=== PATIENT | female | born 1950 | race Caucasian/White ===

== ENCOUNTER 2018-05-19 18:25 | Inpatient (IN) | payer MEDICARE, BC ==
[2018-05-19] VITALS (123 sets, daily range): BP systolic 124–140; BP diastolic 60–104; PULSE 63; TEMP 97.5; O2SAT 70–98
[~2018-05-19] VITALS: Ht 170.2 cm; Wt 138.4 kg
[2018-05-19 20:05] LABS: COLLECTION METHOD CATHETER
[2018-05-19] MEDS ORDERED: MUCINEX D1 TER PO (20:10)
[2018-05-19 20:11] LABS: BASO % 0.3 % (0.0-2.0); EOS # 0.2 (0.0-0.7); EOS % 2.5 % (0-4.0); LYMPH # 1.1 (1.2-3.4); LYMPH % 15.5 % (20.0-51.0); MEAN CELL VOLUME 88 fl (80.0-100.0); MEAN CORPUSCULAR HGB CONC 32 g/dl (33.0-37.0); MEAN PLATELET VOLUME 10.3 fl (7.4-10.4); MONO # 0.6 (0.1-0.6); MONO % 8.3 % (1.7-9.3); PLATELET COUNT 147 K/mm3 (130-400); RED BLOOD COUNT 2.92 M/mm3 (4.10-5.30); REDCELL DISTRIBUTION WIDTH-CV 14.3 % (11.5-14.5)
[2018-05-19] MEDS ORDERED: ADVIL200 MG PO (20:11)
[2018-05-19] MEDS ORDERED: TYLENOL 500MG500 MG PO (20:11)
[2018-05-19 20:12] LABS: HEMATOCRIT 25.7 % (37.0-47.0); HEMOGLOBIN 8.2 g/dl (12.5-16.0); MEAN CORPUSCULAR HEMOGLOBIN 28 pg (27.0-31.0)
[2018-05-19] MEDS ORDERED: NAMENDA XR 28MG PO (20:12)
[2018-05-19 20:13] LABS: PROTHROMBIN TIME 11.2 SECONDS (9.7-12.8)
[2018-05-19] MEDS ORDERED: ZOCOR 40MG40 MG PO (20:13)
[2018-05-19] MEDS ORDERED: BENICAR HCT 12.1 TAB PO (20:13)
[2018-05-19 20:14] LABS: MUCOUS Present /lpf; PH 5 (5-8); SQUAMOUS EPITHELIAL 0-2 /hpf; URINE APPEARANCE Hazy; URINE BACTERIA None Seen /hpf; URINE BILIRUBIN Negative (NEGATIVE); URINE BLOOD 1+ (NEGATIVE); URINE COLOR Straw; URINE GLUCOSE Negative (NEGATIVE); URINE KETONE Negative (NEGATIVE); URINE LEUKOCYTE ESTERASE 3+ (NEGATIVE); URINE NITRATE Negative (NEGATIVE); URINE PROTEIN(semi-quant) Negative (NEGATIVE); URINE UROBILINOGEN Negative (NEGATIVE); URINE WBC >50 /hpf
[2018-05-19] MEDS ORDERED: LYRICA 50MG CAP50 MG PO (20:14)
[2018-05-19] MEDS ORDERED: EXELON9.5 MG/24 TD (20:14)
[2018-05-19] MEDS ORDERED: VICTOZA6 MG/ML SQ (20:15)
[2018-05-19] MEDS ORDERED: LEXAPRO 5MG5 MG PO (20:15)
[2018-05-19 20:17] LABS: ALBUMIN 3.6 gm/dL (3.5-5.0); BILIRUBIN,TOTAL 0.5 mg/dL (0.0-1.0); CALCIUM 7.5 mg/dL (8.4-10.2); TOTAL PROTEIN 6.3 gm/dL (6.4-8.2)
[2018-05-19 20:25] LABS: CREATININE, serum 13.16 mg/dL (0.52-1.25); POTASSIUM 6.7 mmol/L (3.4-5.0)
[2018-05-19 20:26] LABS: CREATININE, serum 13.16 mg/dL (0.52-1.25)
[2018-05-19 21:17] LABS: RETIC # 0.07 M/mm3 (0.02-0.16); RETIC % 2.5 % (0.5-3.52)
[2018-05-19 21:20] LABS: IRON,SERUM 203 ug/dL (35-150)
[2018-05-19 21:29] LABS: TOTAL IRON BINDING CAPACITY 216 ug/dL (265-497)
[2018-05-20] VITALS (794 sets, daily range): BP systolic 117–190; BP diastolic 60–80; PULSE 60–87; TEMP 96.8–98.1; O2SAT 60–100
[2018-05-20 05:35] LABS: BASO % 0.3 % (0.0-2.0); EOS # 0.2 (0.0-0.7); GRAN # 5.7 (1.4-6.5); GRAN % 75.3 % (42.2-75.2); LYMPH # 1.1 (1.2-3.4); LYMPH % 14.5 % (20.0-51.0); MEAN CELL VOLUME 86 fl (80.0-100.0); MEAN CORPUSCULAR HGB CONC 33 g/dl (33.0-37.0); MEAN PLATELET VOLUME 10.4 fl (7.4-10.4); MONO # 0.6 (0.1-0.6); MONO % 7.5 % (1.7-9.3); PLATELET COUNT 148 K/mm3 (130-400); RED BLOOD COUNT 3.02 M/mm3 (4.10-5.30); REDCELL DISTRIBUTION WIDTH-CV 14.4 % (11.5-14.5)
[2018-05-20 05:41] LABS: HEMOGLOBIN 8.5 g/dl (12.5-16.0); MEAN CORPUSCULAR HEMOGLOBIN 28 pg (27.0-31.0)
[2018-05-20 06:01] LABS: ALBUMIN 3.5 gm/dL (3.5-5.0); CALCIUM 8.6 mg/dL (8.4-10.2)
[2018-05-20 06:05] LABS: CREATININE, serum 13.33 mg/dL (0.52-1.25); POTASSIUM 6.1 mmol/L (3.4-5.0)
[2018-05-20 06:06] LABS: PHOSPHOROUS 12.8 mg/dL (2.5-4.5)
[2018-05-20 16:45] LABS: CALCIUM 8.4 mg/dL (8.4-10.2); POTASSIUM 4.5 mmol/L (3.4-5.0)
[2018-05-20 16:52] LABS: CREATININE, serum 9.97 mg/dL (0.52-1.25)
[2018-05-20 20:22] LABS: URINE PROTEIN:CREAT RATIO 1.62 (0.00-0.14)
[2018-05-21] VITALS (680 sets, daily range): BP systolic 135–172; BP diastolic 51–65; PULSE 59–76; TEMP 97–98.1; O2SAT 79–100
[2018-05-21 05:48] LABS: BASO % 0.5 % (0.0-2.0); EOS # 0.1 (0.0-0.7); EOS % 1.4 % (0-4.0); GRAN # 4.4 (1.4-6.5); LYMPH # 0.8 (1.2-3.4); LYMPH % 13.5 % (20.0-51.0); MEAN CELL VOLUME 84 fl (80.0-100.0); MEAN CORPUSCULAR HGB CONC 34 g/dl (33.0-37.0); MEAN PLATELET VOLUME 10.3 fl (7.4-10.4); MONO # 0.4 (0.1-0.6); MONO % 7.4 % (1.7-9.3); PLATELET COUNT 124 K/mm3 (130-400); REDCELL DISTRIBUTION WIDTH-CV 14.2 % (11.5-14.5)
[2018-05-21 05:49] LABS: HEMATOCRIT 22.7 % (37.0-47.0); HEMOGLOBIN 7.7 g/dl (12.5-16.0); MEAN CORPUSCULAR HEMOGLOBIN 29 pg (27.0-31.0)
[2018-05-21 06:00] LABS: ALBUMIN 3.2 gm/dL (3.5-5.0); BILIRUBIN,TOTAL 0.4 mg/dL (0.0-1.0); CALCIUM 7.9 mg/dL (8.4-10.2); POTASSIUM 4.3 mmol/L (3.4-5.0); TOTAL PROTEIN 5.8 gm/dL (6.4-8.2)
[2018-05-21 06:02] LABS: CREATININE, serum 10.62 mg/dL (0.52-1.25)
[2018-05-21 06:03] LABS: PHOSPHOROUS 10.1 mg/dL (2.5-4.5)
[2018-05-21 16:31] LABS: COMPLEMENT-C3 119 mg/dL (79-152); COMPLEMENT-C4 23 mg/dL (18-55)
[2018-05-22] VITALS (9 sets, daily range): BP systolic 135–165; BP diastolic 59–74; PULSE 0–90; TEMP 97.4–98.3
[2018-05-22 00:22] LABS: ANA SCREEN with REFLEX Negative (Negative)
[2018-05-22 01:34] LABS: C-ANCA 13 U/mL (0-99)
[2018-05-22 06:14] LABS: BASO % 0.3 % (0.0-2.0); EOS # 0.2 (0.0-0.7); EOS % 2.8 % (0-4.0); GRAN # 4.1 (1.4-6.5); GRAN % 72.4 % (42.2-75.2); LYMPH # 0.9 (1.2-3.4); LYMPH % 15.4 % (20.0-51.0); MEAN CELL VOLUME 86 fl (80.0-100.0); MEAN CORPUSCULAR HGB CONC 33 g/dl (33.0-37.0); MEAN PLATELET VOLUME 10.7 fl (7.4-10.4); MONO # 0.5 (0.1-0.6); MONO % 8.9 % (1.7-9.3); PLATELET COUNT 131 K/mm3 (130-400); RED BLOOD COUNT 2.65 M/mm3 (4.10-5.30); REDCELL DISTRIBUTION WIDTH-CV 14.3 % (11.5-14.5)
[2018-05-22 06:17] LABS: HEMATOCRIT 22.8 % (37.0-47.0); HEMOGLOBIN 7.6 g/dl (12.5-16.0); MEAN CORPUSCULAR HEMOGLOBIN 29 pg (27.0-31.0)
[2018-05-22 06:23] LABS: ALBUMIN 3.3 gm/dL (3.5-5.0); CALCIUM 8.1 mg/dL (8.4-10.2); POTASSIUM 4.7 mmol/L (3.4-5.0)
[2018-05-22 06:26] LABS: CREATININE, serum 12.15 mg/dL (0.52-1.25)
[2018-05-22 06:28] LABS: PHOSPHOROUS 11.9 mg/dL (2.5-4.5)
[2018-05-23] VITALS (9 sets, daily range): BP systolic 134–178; BP diastolic 44–80; PULSE 67–89; TEMP 97.6–98.4
[2018-05-23 09:05] LABS: BASO % 0.3 % (0.0-2.0); EOS # 0.1 (0.0-0.7); EOS % 0.8 % (0-4.0); GRAN # 4.8 (1.4-6.5); LYMPH # 0.8 (1.2-3.4); LYMPH % 13.6 % (20.0-51.0); MEAN CELL VOLUME 85 fl (80.0-100.0); MEAN CORPUSCULAR HGB CONC 34 g/dl (33.0-37.0); MEAN PLATELET VOLUME 10.2 fl (7.4-10.4); MONO # 0.4 (0.1-0.6); PLATELET COUNT 124 K/mm3 (130-400); RED BLOOD COUNT 2.59 M/mm3 (4.10-5.30); REDCELL DISTRIBUTION WIDTH-CV 13.9 % (11.5-14.5)
[2018-05-23 09:06] LABS: HEMATOCRIT 21.9 % (37.0-47.0); HEMOGLOBIN 7.4 g/dl (12.5-16.0); MEAN CORPUSCULAR HEMOGLOBIN 29 pg (27.0-31.0)
[2018-05-23 09:15] LABS: ALBUMIN 3.3 gm/dL (3.5-5.0); CALCIUM 8.6 mg/dL (8.4-10.2); PHOSPHOROUS 5.3 mg/dL (2.5-4.5); POTASSIUM 3.7 mmol/L (3.4-5.0)
[2018-05-23 09:54] LABS: CREATININE, serum 5.63 mg/dL (0.52-1.25)
[2018-05-24] VITALS (9 sets, daily range): BP systolic 110–180; BP diastolic 54–75; PULSE 67–75; TEMP 98.1–98.2
[2018-05-24 06:23] LABS: BASO % 0.2 % (0.0-2.0); EOS # 0.1 (0.0-0.7); EOS % 1.2 % (0-4.0); GRAN # 6.6 (1.4-6.5); GRAN % 76.9 % (42.2-75.2); LYMPH # 1.2 (1.2-3.4); LYMPH % 13.3 % (20.0-51.0); MEAN CELL VOLUME 85 fl (80.0-100.0); MEAN CORPUSCULAR HGB CONC 33 g/dl (33.0-37.0); MONO # 0.7 (0.1-0.6); MONO % 8.1 % (1.7-9.3); PLATELET COUNT 131 K/mm3 (130-400); RED BLOOD COUNT 2.71 M/mm3 (4.10-5.30); REDCELL DISTRIBUTION WIDTH-CV 14.2 % (11.5-14.5)
[2018-05-24 06:32] LABS: ALBUMIN 3.3 gm/dL (3.5-5.0); CALCIUM 8.7 mg/dL (8.4-10.2); HEMOGLOBIN 7.6 g/dl (12.5-16.0); MEAN CORPUSCULAR HEMOGLOBIN 28 pg (27.0-31.0); PHOSPHOROUS 5.4 mg/dL (2.5-4.5)
[2018-05-24 06:56] LABS: CREATININE, serum 6.24 mg/dL (0.52-1.25)
[2018-05-25 07:43] VITALS: BP 136/56; PULSE 64; TEMP 98.8
[2018-05-25 09:10] LABS: BASO % 0.3 % (0.0-2.0); EOS # 0.1 (0.0-0.7); EOS % 1.7 % (0-4.0); GRAN # 5.3 (1.4-6.5); GRAN % 73.7 % (42.2-75.2); LYMPH # 1.1 (1.2-3.4); LYMPH % 15.6 % (20.0-51.0); MEAN CELL VOLUME 88 fl (80.0-100.0); MEAN CORPUSCULAR HGB CONC 32 g/dl (33.0-37.0); MEAN PLATELET VOLUME 10.8 fl (7.4-10.4); MONO # 0.6 (0.1-0.6); MONO % 8.3 % (1.7-9.3); PLATELET COUNT 144 K/mm3 (130-400); RED BLOOD COUNT 2.49 M/mm3 (4.10-5.30); REDCELL DISTRIBUTION WIDTH-CV 14.5 % (11.5-14.5)
[2018-05-25 09:12] LABS: HEMOGLOBIN 7.1 g/dl (12.5-16.0); MEAN CORPUSCULAR HEMOGLOBIN 29 pg (27.0-31.0)
[2018-05-25 09:19] LABS: ALBUMIN 3.3 gm/dL (3.5-5.0); PHOSPHOROUS 6.5 mg/dL (2.5-4.5); POTASSIUM 3.9 mmol/L (3.4-5.0)
[2018-05-25 09:25] LABS: CREATININE, serum 8.5 mg/dL (0.52-1.25)
[2018-05-25 09:58] VITALS: BP 153/68; PULSE 59; TEMP 98.4
[2018-05-25 10:13] VITALS: BP 143/83; PULSE 60; TEMP 98.4
[2018-05-25 10:30] VITALS: BP 153/75; PULSE 60; TEMP 98
[2018-05-25 11:35] VITALS: BP 157/82; PULSE 64; TEMP 98.1
[2018-05-25 19:57] VITALS: BP 164/56; PULSE 68; TEMP 98
[2018-05-26 01:30] VITALS: BP 170/47; PULSE 68; TEMP 97.9
[2018-05-26 06:14] VITALS: BP 155/60; PULSE 64
[2018-05-26 07:26] LABS: BASO % 0.3 % (0.0-2.0); EOS # 0.2 (0.0-0.7); EOS % 2.6 % (0-4.0); GRAN # 5.2 (1.4-6.5); GRAN % 70.7 % (42.2-75.2); LYMPH # 1.2 (1.2-3.4); LYMPH % 16.3 % (20.0-51.0); MEAN CELL VOLUME 87 fl (80.0-100.0); MEAN CORPUSCULAR HGB CONC 32 g/dl (33.0-37.0); MEAN PLATELET VOLUME 10.4 fl (7.4-10.4); MONO # 0.7 (0.1-0.6); MONO % 9.4 % (1.7-9.3); PLATELET COUNT 147 K/mm3 (130-400); RED BLOOD COUNT 3.04 M/mm3 (4.10-5.30); REDCELL DISTRIBUTION WIDTH-CV 14.6 % (11.5-14.5)
[2018-05-26 07:27] LABS: HEMATOCRIT 26.5 % (37.0-47.0); HEMOGLOBIN 8.5 g/dl (12.5-16.0); MEAN CORPUSCULAR HEMOGLOBIN 28 pg (27.0-31.0)
[2018-05-26 07:40] LABS: ALBUMIN 3.6 gm/dL (3.5-5.0); CALCIUM 9.6 mg/dL (8.4-10.2); PHOSPHOROUS 5.2 mg/dL (2.5-4.5); POTASSIUM 3.8 mmol/L (3.4-5.0)
[2018-05-26 07:43] LABS: CREATININE, serum 6.41 mg/dL (0.52-1.25)
[2018-05-26 10:47] VITALS: BP 176/65; PULSE 64; TEMP 98
[2018-05-26 17:10] VITALS: BP 162/70; PULSE 64
[2018-05-27 00:48] VITALS: BP 118/85; PULSE 62
[2018-05-27 05:45] VITALS: BP 148/78; PULSE 66
[2018-05-27 06:14] LABS: BASO % 0.4 % (0.0-2.0); EOS # 0.2 (0.0-0.7); EOS % 2.6 % (0-4.0); GRAN # 5.2 (1.4-6.5); GRAN % 69.4 % (42.2-75.2); LYMPH # 1.3 (1.2-3.4); LYMPH % 17.6 % (20.0-51.0); MEAN CELL VOLUME 89 fl (80.0-100.0); MEAN CORPUSCULAR HGB CONC 32 g/dl (33.0-37.0); MEAN PLATELET VOLUME 10.6 fl (7.4-10.4); MONO # 0.7 (0.1-0.6); MONO % 9.3 % (1.7-9.3); PLATELET COUNT 161 K/mm3 (130-400); RED BLOOD COUNT 3.05 M/mm3 (4.10-5.30); REDCELL DISTRIBUTION WIDTH-CV 14.6 % (11.5-14.5)
[2018-05-27 06:15] LABS: HEMOGLOBIN 8.6 g/dl (12.5-16.0); MEAN CORPUSCULAR HEMOGLOBIN 28 pg (27.0-31.0)
[2018-05-27 06:23] LABS: ALBUMIN 3.5 gm/dL (3.5-5.0); CALCIUM 9.7 mg/dL (8.4-10.2); PHOSPHOROUS 6.5 mg/dL (2.5-4.5); POTASSIUM 4.4 mmol/L (3.4-5.0)
[2018-05-27 06:27] LABS: CREATININE, serum 8.47 mg/dL (0.52-1.25)
[2018-05-27 07:37] VITALS: BP 141/64; PULSE 60; TEMP 98.3
[2018-05-27 12:05] VITALS: BP 156/98; PULSE 67; TEMP 98.2
[2018-05-27 16:33] VITALS: BP 187/70; PULSE 65; TEMP 97.7
[2018-05-28 03:23] VITALS: BP 160/97; PULSE 75; TEMP 97.9
[2018-05-28 07:28] LABS: BASO % 0.4 % (0.0-2.0); EOS # 0.3 (0.0-0.7); EOS % 3.2 % (0-4.0); GRAN # 6.1 (1.4-6.5); GRAN % 73.5 % (42.2-75.2); LYMPH # 1.2 (1.2-3.4); LYMPH % 14.2 % (20.0-51.0); MEAN CELL VOLUME 89 fl (80.0-100.0); MEAN CORPUSCULAR HGB CONC 31 g/dl (33.0-37.0); MEAN PLATELET VOLUME 10.3 fl (7.4-10.4); MONO # 0.7 (0.1-0.6); MONO % 8.2 % (1.7-9.3); PLATELET COUNT 171 K/mm3 (130-400); RED BLOOD COUNT 3.23 M/mm3 (4.10-5.30); REDCELL DISTRIBUTION WIDTH-CV 14.4 % (11.5-14.5)
[2018-05-28 07:30] LABS: HEMATOCRIT 28.7 % (37.0-47.0); HEMOGLOBIN 8.9 g/dl (12.5-16.0); MEAN CORPUSCULAR HEMOGLOBIN 28 pg (27.0-31.0)
[2018-05-28 07:46] LABS: ALBUMIN 3.7 gm/dL (3.5-5.0); CALCIUM 9.9 mg/dL (8.4-10.2); PHOSPHOROUS 7.3 mg/dL (2.5-4.5); POTASSIUM 4.3 mmol/L (3.4-5.0)
[2018-05-28 08:09] LABS: CREATININE, serum 10.53 mg/dL (0.52-1.25)
[2018-05-28 08:11] VITALS: BP 186/83; PULSE 66; TEMP 98.2
[2018-05-28 15:56] VITALS: BP 116/70; PULSE 58; TEMP 98.2
[2018-05-28 21:46] VITALS: BP 132/72; PULSE 66; TEMP 99.2
[2018-05-29 00:52] VITALS: BP 141/59; PULSE 64; TEMP 98.2
[2018-05-29 05:27] VITALS: BP 159/96; PULSE 72; TEMP 98.7
[2018-05-29 06:07] LABS: BASO % 0.3 % (0.0-2.0); EOS # 0.2 (0.0-0.7); EOS % 1.7 % (0-4.0); GRAN # 7.2 (1.4-6.5); GRAN % 71.4 % (42.2-75.2); LYMPH # 1.7 (1.2-3.4); LYMPH % 16.8 % (20.0-51.0); MEAN CELL VOLUME 88 fl (80.0-100.0); MEAN CORPUSCULAR HGB CONC 32 g/dl (33.0-37.0); MEAN PLATELET VOLUME 10.2 fl (7.4-10.4); MONO # 0.9 (0.1-0.6); MONO % 9.2 % (1.7-9.3); PLATELET COUNT 202 K/mm3 (130-400); RED BLOOD COUNT 3.32 M/mm3 (4.10-5.30); REDCELL DISTRIBUTION WIDTH-CV 14.6 % (11.5-14.5)
[2018-05-29 06:10] LABS: HEMATOCRIT 29.1 % (37.0-47.0); HEMOGLOBIN 9.3 g/dl (12.5-16.0); MEAN CORPUSCULAR HEMOGLOBIN 28 pg (27.0-31.0)
[2018-05-29 06:27] LABS: ALBUMIN 4.1 gm/dL (3.5-5.0); CALCIUM 9.8 mg/dL (8.4-10.2); PHOSPHOROUS 6.4 mg/dL (2.5-4.5); POTASSIUM 3.9 mmol/L (3.4-5.0)
[2018-05-29 06:41] LABS: CREATININE, serum 7.66 mg/dL (0.52-1.25)
[2018-05-29 07:58] VITALS: BP 151/90; PULSE 73; TEMP 98.3
[2018-05-30 04:10] VITALS: BP 170/70; PULSE 77; TEMP 98.6
[2018-05-30 13:54] VITALS: BP 151/90; PULSE 73; TEMP 98.3
== END 2018-05-30 14:30 | disposition hospice, inpatient (51) | DRG 673 ==
LOC: ICU 18:25 → MEDICAL 19:27 → ICU 19:27 → MEDICAL 05-21 16:45
PROVIDERS: Internal Medicine; Internal Medicine Gastroenterology; Internal Medicine Nephrology
PROC: 02H633Z Insertion of Infusion Device into Right Atrium, Percutaneous Approach (ICD-10-PCS; 2018-05-20)
PROC: B2141ZZ Fluoroscopy of Right Heart using Low Osmolar Contrast (ICD-10-PCS; 2018-05-20)
PROC: 5A1D70Z Performance of Urinary Filtration, Intermittent, Less than 6 Hours Per Day (ICD-10-PCS; 2018-05-20)
PROC: 5A1D70Z Performance of Urinary Filtration, Intermittent, Less than 6 Hours Per Day (ICD-10-PCS; 2018-05-22)
PROC: 5A1D70Z Performance of Urinary Filtration, Intermittent, Less than 6 Hours Per Day (ICD-10-PCS; 2018-05-23)
PROC: 0DJ08ZZ Inspection of Upper Intestinal Tract, Via Natural or Artificial Opening Endoscopic (ICD-10-PCS; principal; 2018-05-23 12:00)
PROC: 0JHD0XZ Insertion of Tunneled Vascular Access Device into Right Upper Arm Subcutaneous Tissue and Fascia, Open Approach (ICD-10-PCS; 2018-05-24)
PROC: 02H633Z Insertion of Infusion Device into Right Atrium, Percutaneous Approach (ICD-10-PCS; 2018-05-24)
PROC: 5A1D70Z Performance of Urinary Filtration, Intermittent, Less than 6 Hours Per Day (ICD-10-PCS; 2018-05-25)
PROC: 5A1D70Z Performance of Urinary Filtration, Intermittent, Less than 6 Hours Per Day (ICD-10-PCS; 2018-05-28)
DX: N17.0 Acute kidney failure with tubular necrosis (principal); G93.41 Metabolic encephalopathy; Z68.42 Body mass index [BMI] 45.0-49.9, adult; E87.2 Acidosis; F02.81 Dementia in other diseases classified elsewhere, unspecified severity, with behavioral disturbance; Z66 Do not resuscitate; Z51.5 Encounter for palliative care; N18.4 Chronic kidney disease, stage 4 (severe); I12.9 Hypertensive chronic kidney disease with stage 1 through stage 4 chronic kidney disease, or unspecified chronic kidney disease; D50.0 Iron deficiency anemia secondary to blood loss (chronic); Z79.4 Long term (current) use of insulin; G30.9 Alzheimer's disease, unspecified; E87.5 Hyperkalemia; E66.01 Morbid (severe) obesity due to excess calories; E78.5 Hyperlipidemia, unspecified; F41.8 Other specified anxiety disorders; E83.39 Other disorders of phosphorus metabolism; G62.9 Polyneuropathy, unspecified
CPT/HCPCS: A4216; C1751; C1769; J0360; J0696; J0882; J1630; J1644; J2060; J2250; J2704; J3010; P9016; Q9967